=== PATIENT | male | born 1950 | race Caucasian/White ===

== ENCOUNTER 2018-01-20 09:11 | Day surgery (SDC) | payer OTHER ==
[~2018-01-20] VITALS: Ht 170.2 cm; Wt 82.0 kg
[~2018-01-20 09:11] MED LIST: ATENOLOL25 MG PO; DAILY VALUE1 EACH PO; FLONASE16 G1 BOTH NARES; LITE COAT ASPI325 M1 PO; METFORMIN HCL1000 MG PO; NITROSTAT0.4 MG SL; PRAVACHOL10 MG PO; ROSUVASTATIN CA20 MG PO; ZETIA10 MG PO
== END 2018-01-20 17:05 | disposition home or self-care (01) ==
LOC: CATH 09:11
DX: I25.810 Atherosclerosis of coronary artery bypass graft(s) without angina pectoris (principal); I34.0 Nonrheumatic mitral (valve) insufficiency; R06.02 Shortness of breath; E11.9 Type 2 diabetes mellitus without complications; I11.9 Hypertensive heart disease without heart failure; E78.2 Mixed hyperlipidemia; Z79.82 Long term (current) use of aspirin; Z95.5 Presence of coronary angioplasty implant and graft; Z79.84 Long term (current) use of oral hypoglycemic drugs; Z95.1 Presence of aortocoronary bypass graft; Z82.49 Family history of ischemic heart disease and other diseases of the circulatory system; Z87.891 Personal history of nicotine dependence
CPT/HCPCS: 93005; C1760; C1769; C1887; C1894; J1644; J2250; J3010; J7040